=== PATIENT | female | born 1995 | race Caucasian/White ===

== ENCOUNTER 2022-06-02 14:26 | Emergency (ER) | payer SELFPAY ==
[2022-06-02 15:20] LABS: Bilirubin Neg (Negative); Blood, Urine 10 (Negative); Clarity Clear (Clear); Glucose, Urine (Dipstick) Normal (Negative); Ketone, Urine Negative (Negative); Leukocyte 25 (Negative); Nitrite Negative (Negative); Protein, Urine (Dipstick) Negative (Neg-Trace); Urobilinogen Normal mg/dL (Less than 2); pH, Urine 6.5 (5.0-9.0)
[2022-06-02 15:22] LABS: Pregnancy Test - Urine (BHCG) Negative (Negative); Pregu Control Background? CLEAR/WHITE (CLR/WHITE); Pregu Control Bar Appear? YES (CONTROL BAR)
[2022-06-02 15:37] LABS: Bacteria/HPF Rare-Few HPF (None Seen); Squamous Epithelial 0-3 HPF (0-3); WBC/HPF 0-3 HPF (0-3)
[2022-06-02] MEDS ORDERED: Ondansetron PF 4 MG/2 ML Vial ONE (15:37)
[2022-06-02] MEDS ORDERED: Lidocaine Viscous Sol 2% 15 ml UD Cup ONE (15:38)
[2022-06-02 15:44] LABS: #Eosinphils 0.2 10x3/uL (0.0-0.5); #Monocytes 0.5 10x3/uL (0.0-1.1); #Neutrophils 5.5 10x3/uL (1.5-8.4); %Basophils 0.5 % (0.0-2.0); %Eosinophils 1.8 % (0.0-6.0); %Lymphocytes 24.6 % (18.0-47.0); %Monocytes 6.3 % (0.0-10.0); %Neutrophils 66.3 % (40.0-75.0); Hemoglobin 15.1 g/dL (12.0-15.5); Mean Corpuscular HGB CONC 33.4 g/dL (32.0-36.0); Mean Corpuscular Volume 86.8 fl (81.6-98.3); Mean Platelet Volume 10.2 fl (7.4-10.4); Platelet Count 220 10x3/uL (150-450); RBC Distribution Width 13.2 % (11.5-14.5); Red Blood Cell (RBC) Count 5.21 10x6/uL (3.90-5.03); White Blood Cell (WBC) Count 8.3 10x3/uL (3.5-10.5)
[2022-06-02 16:01] LABS: ALT (SGPT) 25 U/L (8-55); AST (SGOT) 22 U/L (5-34); Albumin 4.9 g/dL (3.5-5.0); Alkaline Phosphatase 84 U/L (40-110); Anion Gap 15 mmol/L (10-20); BUN (Urea Nitrogen) 12 mg/dL (7.0-18.7); Bilirubin, Total 0.8 mg/dL (0.2-1.2); Calc. Creatinine Clearance 0 mL/min (70-130); Calcium 10.4 mg/dL (7.8-10.44); Carbon Dioxide 24 mmol/L (22-29); Chloride 105 mmol/L (98-107); Estimated GFR 104; Globulin 3.3 g/dL (2.4-3.5); Glucose 74 mg/dL (70-105); Lipase 41 U/L (8-78); Magnesium 1.9 mg/dL (1.6-2.6); Potassium 4.2 mmol/L (3.5-5.1); Protein, Total 8.2 g/dL (6.0-8.3); Sodium 140 mmol/L (136-145)
== END 2022-06-02 16:58 | disposition home or self-care (01) ==
LOC: CSHERS 14:26
DX: K21.9 Gastro-esophageal reflux disease without esophagitis (principal); R11.2 Nausea with vomiting, unspecified; F17.210 Nicotine dependence, cigarettes, uncomplicated
CPT/HCPCS: 71045; 80053; 81003; 81015; 81025; 83690; 83735; 84484; 85025; 87086; 93005; 96361; 96374; J2405

== ENCOUNTER 2022-10-09 16:54 | Emergency (ER) | payer MEDICAID, SELFPAY ==
[2022-10-09] MEDS ORDERED: Acetaminophen 500 MG TAB ONE (18:57)
[2022-10-09] MEDS ORDERED: diphenhydrAMINE 50 MG/ML VIAL ONE (18:57)
[2022-10-09] MEDS ORDERED: Metoclopramide HCl 10 MG/2 ML VIAL ONE (18:57)
== END 2022-10-09 20:03 | disposition home or self-care (01) ==
LOC: CSHERS 16:54
DX: O99.351 Diseases of the nervous system complicating pregnancy, first trimester (principal); G43.909 Migraine, unspecified, not intractable, without status migrainosus; O99.331 Smoking (tobacco) complicating pregnancy, first trimester; F17.210 Nicotine dependence, cigarettes, uncomplicated; Z3A.01 Less than 8 weeks gestation of pregnancy
CPT/HCPCS: 36416; 96365; 96375; J1200; J2765

== ENCOUNTER 2023-04-25 23:28 | Day surgery (SDC) | payer OTHER ==
[2023-04-25 23:51] VITALS: BMI 36.3
[2023-04-26] MEDS ORDERED: hydrALAZINE 20 MG/ML VIAL SLOW IVP PRN (00:31)
[2023-04-26 03:38] LABS: Bilirubin Neg (Negative); Blood, Urine Negative (Negative); Glucose, Urine (Dipstick) Normal (Negative); Ketone, Urine Negative (Negative); Leukocyte 25 (Negative); Nitrite Negative (Negative); Protein, Urine (Dipstick) 30 mg/dl (Neg-Trace); Urobilinogen Normal mg/dL (Less than 2)
[2023-04-26 03:41] LABS: Clarity Hazy (Clear)
[2023-04-26 03:50] LABS: Bacteria/HPF 1+ HPF (None Seen); CAUTI Indications for Culture Pregnancy; RBC/HPF 0-3 HPF (0-3); Squamous Epithelial 0-3 HPF (0-3); WBC/HPF 0-3 HPF (0-3)
[2023-04-26 03:52] LABS: Urine Culture Reflex Yes Yes
== END 2023-04-26 03:41 | disposition home or self-care (01) ==
LOC: CSHLD/OP 23:28
PROVIDERS: ATTEND Family Medicine
DX: O47.03 False labor before 37 completed weeks of gestation, third trimester (principal); O99.333 Smoking (tobacco) complicating pregnancy, third trimester; F17.210 Nicotine dependence, cigarettes, uncomplicated; Z3A.35 35 weeks gestation of pregnancy; Z79.899 Other long term (current) drug therapy
CPT/HCPCS: 76815; 81001; 87086; 99283

== ENCOUNTER 2023-05-07 23:18 | Day surgery (SDC) | payer OTHER ==
[2023-05-07 23:30] VITALS: BMI 37.4
[2023-05-08] MEDS ORDERED: hydrALAZINE 20 MG/ML VIAL SLOW IVP PRN
== END 2023-05-08 01:45 | disposition left against medical advice (07) ==
LOC: CSHLD/OP 23:18
PROVIDERS: ATTEND Student in an Organized Health Care Education/Training Program
DX: O36.8130 Decreased fetal movements, third trimester, not applicable or unspecified (principal); O99.513 Diseases of the respiratory system complicating pregnancy, third trimester; J45.909 Unspecified asthma, uncomplicated; O99.613 Diseases of the digestive system complicating pregnancy, third trimester; K21.9 Gastro-esophageal reflux disease without esophagitis; O41.03X0 Oligohydramnios, third trimester, not applicable or unspecified; O98.813 Other maternal infectious and parasitic diseases complicating pregnancy, third trimester; B95.1 Streptococcus, group B, as the cause of diseases classified elsewhere; O99.343 Other mental disorders complicating pregnancy, third trimester; F41.9 Anxiety disorder, unspecified; O99.323 Drug use complicating pregnancy, third trimester; F12.90 Cannabis use, unspecified, uncomplicated; O99.333 Smoking (tobacco) complicating pregnancy, third trimester; F17.200 Nicotine dependence, unspecified, uncomplicated; O99.213 Obesity complicating pregnancy, third trimester; Z79.899 Other long term (current) drug therapy; Z91.040 Latex allergy status; Z91.018 Allergy to other foods; Z3A.37 37 weeks gestation of pregnancy
CPT/HCPCS: 76819; 99282

== ENCOUNTER 2023-05-08 12:54 | Inpatient (IN) | payer OTHER ==
[2023-05-08 13:48] VITALS: BMI 37.4
[2023-05-08] MEDS ORDERED: hydrALAZINE 20 MG/ML VIAL SLOW IVP PRN (14:12)
== END 2023-05-08 15:46 | disposition home health service (06) | DRG 832 ==
LOC: CSHLD 12:54
PROVIDERS: ADMIT Obstetrics & Gynecology; ATTEND Obstetrics & Gynecology
PROC: 4A1HXCZ Monitoring of Products of Conception, Cardiac Rate, External Approach (ICD-10-PCS; principal; 2023-05-08)
DX: O41.03X0 Oligohydramnios, third trimester, not applicable or unspecified (principal); O98.813 Other maternal infectious and parasitic diseases complicating pregnancy, third trimester; O99.333 Smoking (tobacco) complicating pregnancy, third trimester; F17.210 Nicotine dependence, cigarettes, uncomplicated; Z71.6 Tobacco abuse counseling; Z3A.39 39 weeks gestation of pregnancy; O36.8130 Decreased fetal movements, third trimester, not applicable or unspecified; O99.513 Diseases of the respiratory system complicating pregnancy, third trimester; J45.909 Unspecified asthma, uncomplicated; O99.613 Diseases of the digestive system complicating pregnancy, third trimester; K21.9 Gastro-esophageal reflux disease without esophagitis; B95.1 Streptococcus, group B, as the cause of diseases classified elsewhere; O99.343 Other mental disorders complicating pregnancy, third trimester; F41.9 Anxiety disorder, unspecified; F17.200 Nicotine dependence, unspecified, uncomplicated; O99.213 Obesity complicating pregnancy, third trimester; Z79.899 Other long term (current) drug therapy; Z91.040 Latex allergy status; Z91.018 Allergy to other foods
CPT/HCPCS: 76819; 99282

== ENCOUNTER 2023-05-15 16:35 | Inpatient (IN) | payer OTHER ==
[2023-05-15 17:39] VITALS: BMI 38.2
[2023-05-15] MEDS ORDERED: hydrALAZINE 20 MG/ML VIAL SLOW IVP PRN (17:48)
[2023-05-15] MEDS ORDERED: Lidocaine 1% (PF) 30 ML VIAL SC PRN (17:48)
[2023-05-15] MEDS ORDERED: Methylergonovine 0.2 MG/ML VIAL IM PRN (17:48)
[2023-05-15] MEDS ORDERED: Ondansetron PF 4 MG/2 ML Vial IVP PRN (17:48)
[2023-05-15] MEDS ORDERED: Promethazine HCl 25 MG/ML VIAL IM PRN (17:48)
[2023-05-15] MEDS ORDERED: Ibuprofen 800 MG TAB PO PRN (17:48)
[2023-05-15] MEDS ORDERED: Misoprostol 200 MCG TAB PR PRN (17:48)
[2023-05-15] MEDS ORDERED: Acetaminophen 500 MG TAB PO PRN (17:48)
[2023-05-15 18:23] LABS: Hematocrit 37.2 % (34.9-44.5); Hemoglobin 13.2 g/dL (12.0-15.5); Mean Corpuscular HGB CONC 35.5 g/dL (32.0-36.0); Mean Corpuscular Hemoglobin 31.1 pg (27.0-33.0); Mean Corpuscular Volume 87.5 fl (81.6-98.3); Mean Platelet Volume 12.4 fl (7.4-10.4); Platelet Count 201 10x3/uL (150-450); RBC Distribution Width 14.1 % (11.5-14.5); Red Blood Cell (RBC) Count 4.25 10x6/uL (3.90-5.03); White Blood Cell (WBC) Count 13.4 10x3/uL (3.5-10.5)
[2023-05-15 18:55] LABS: HBSAg Index 0.23 S/CO (0-0.99); Hep B Surf Ag - L&D Non-Reactive S/CO (NonReactive); Syphilis Antibody Nonreactive (Nonreactive); Syphilis Antibody Index 0.03 S/CO (<1.00 Non-Reactive)
[2023-05-15] MEDS ORDERED: hydrOXYzine 10 MG TAB PO PRN (19:39)
[2023-05-15] MEDS ORDERED: Tranexamic Acid 1,000 MG/10 ML VIAL IVP PRN (19:40)
[2023-05-15] MEDS ORDERED: Oxytocin 30 units/NS 500 ML 500 ML IV SCH (19:45)
[2023-05-15] MEDS: Penicillin G Potassium 5 MILL.UNITS in Sodium Chloride 0.9% 100 ML IVPB SCH (20:19)
[2023-05-15] MEDS: Misoprostol 100 MCG TAB VAG SCH (20:19)
[2023-05-15] MEDS: hydrOXYzine 25 MG TAB PO SCH (21:00)
[2023-05-16] MEDS: Calcium Carbonate 500 MG ChewTAB PO SCH (02:56)
[2023-05-16] MEDS: Penicillin G 2.5 MILL.units 2.5 MILL.UNITS in Premix 1 BAG IVPB SCH (02:56)
[2023-05-16] MEDS ORDERED: Acetaminophen 325 MG TAB PO PRN (04:00)
[2023-05-16] MEDS ORDERED: Communication Order-Pharmacy FS SCH ×2 (04:00→08:00)
[2023-05-16] MEDS ORDERED: Ondansetron PF 4 MG/2 ML Vial IVP PRN ×3 (04:00→07:51)
[2023-05-16] MEDS ORDERED: Naloxone HCl 0.4 mg/ml Vial IVP PRN ×4 (04:00→07:51)
[2023-05-16] MEDS ORDERED: Promethazine HCl 25 MG/ML VIAL IM PRN ×2 (04:00→07:51)
[2023-05-16] MEDS ORDERED: ePHEDrine Sulfate 50 MG/10 ML VIAL SLOW IVP PRN (04:00)
[2023-05-16] MEDS ORDERED: diphenhydrAMINE 50 MG/ML VIAL IVP PRN (04:00)
[2023-05-16] MEDS ORDERED: fentaNYL 2 mcg/Ropivacaine 0.2% Epidural 100 ML CADD EPIDURAL SCH (04:00)
[2023-05-16] MEDS ORDERED: Lactated Ringer's 500 ML IV PRN (04:00)
[2023-05-16] MEDS ORDERED: Moisturizing Cream (Eucerin) 113 GM JAR TOP PRN ×2 (04:00→07:51)
[2023-05-16] MEDS ORDERED: Naloxone HCl 0.4 mg/ml Vial IV PRN (07:51)
[2023-05-16] MEDS ORDERED: Promethazine HCl 25 MG SUPP PR PRN (07:51)
[2023-05-16] MEDS ORDERED: Meperidine HCl/PF 25 MG (1 mL) VIAL SLOW IVP PRN (07:51)
[2023-05-16] MEDS ORDERED: fentaNYL 50 mcg/mL 1 mL Vial SLOW IVP PRN (07:51)
[2023-05-16 07:52] LABS: Analyzer IN Cardio CS NICU; Critical Notified Whom: LICAN; RapidComm Collect By CBN; pH (Cord, venous) 7.364 (7.250-7.350)
[2023-05-16] MEDS ORDERED: Ketorolac Tromethamine 30 MG (1 mL) VIAL IVP SCH (08:00)
[2023-05-16] MEDS ORDERED: Lanolin Ointment 7 GM TUBE TOP PRN (08:06)
[2023-05-16] MEDS ORDERED: hydrALAZINE 20 MG/ML VIAL SLOW IVP PRN (08:06)
[2023-05-16] MEDS: HYDROmorphone 0.5 MG/0.5 ML SYRINGE SLOW IVP PRN (10:42)
[2023-05-16] MEDS: Lactated Ringer's 1,000 ML IV SCH (12:28)
[2023-05-16] MEDS: diphenhydrAMINE 50 MG/ML VIAL IVP PRN (12:31)
[2023-05-16] MEDS: CEFAZOLIN 2 GM VIAL ONE (14:20)
[2023-05-16] MEDS: Azithromycin 500 MG VIAL ONE (14:20)
[2023-05-16] MEDS: fentaNYL/Ropivacaine Epidural 100 ML ONE (14:20)
[2023-05-16] MEDS: ePHEDrine Sulfate 50 MG/10 ML VIAL ONE (14:21)
[2023-05-16] MEDS: PHENYLEPHRINE-NS 100 MCG/ML 10 ML SYRINGE ONE (14:21)
[2023-05-16] MEDS: Ondansetron PF 4 MG/2 ML Vial ONE (14:21)
[2023-05-16] MEDS: Dexamethasone 4 mg/ml Vial ONE (14:21)
[2023-05-16] MEDS: Morphine PF 10 MG/10 ML VIAL ONE (14:21)
[2023-05-16] MEDS: Glycopyrrolate 0.2 MG/ML 5 ML SYRINGE ONE (14:21)
[2023-05-16] MEDS: Chloroprocaine 3% PF 20 ML VIAL ONE (14:21)
[2023-05-16] MEDS: Oxytocin 10 UNITS/ML VIAL ONE (14:21)
[2023-05-16] MEDS: Boostrix 0.5 ML (Tdap) VIAL (>/=7 yrs of age) IM ONE (14:22)
[2023-05-16] MEDS: Ferrous Sulfate 325 MG TAB PO SCH (14:22)
[2023-05-16] MEDS: Prenatal Vitamin 1 TAB PO SCH (14:22)
[2023-05-16] MEDS: Ketorolac Tromethamine 30 MG (1 mL) VIAL ONE (14:22)
[2023-05-16] MEDS ORDERED: Terbutaline Sulfate 1 MG/ML VIAL ONE (16:00)
[2023-05-16] MEDS ORDERED: Bupivacaine 0.25% HCL 30 ML VIAL ONE (16:00)
[2023-05-16] MEDS: Ketorolac Tromethamine 30 MG (1 mL) VIAL IVP PRN (16:09)
[2023-05-16] MEDS: hydrOXYzine 25 MG TAB PO PRN (16:29)
[2023-05-16] MEDS: Calcium Carbonate 500 MG ChewTAB PO PRN (20:13)
[2023-05-16] MEDS: Docusate 100 MG CAP PO PRN (20:13)
[2023-05-16] MEDS: HYDROcodone/Acetaminophen 5/325 mg Tablet PO PRN (20:13)
[2023-05-17 04:19] LABS: Hematocrit 29.9 % (34.9-44.5); Hemoglobin 9.9 g/dL (12.0-15.5); Mean Corpuscular HGB CONC 33.1 g/dL (32.0-36.0); Mean Corpuscular Hemoglobin 29.8 pg (27.0-33.0); Mean Corpuscular Volume 90.1 fl (81.6-98.3); Mean Platelet Volume 11.9 fl (7.4-10.4); Platelet Count 152 10x3/uL (150-450); RBC Distribution Width 14.2 % (11.5-14.5); Red Blood Cell (RBC) Count 3.32 10x6/uL (3.90-5.03); White Blood Cell (WBC) Count 14.6 10x3/uL (3.5-10.5)
[2023-05-17] MEDS ORDERED: hydrOXYzine 25 MG TAB PO PRN (13:27)
[2023-05-17] MEDS: Ibuprofen 800 MG TAB PO SCH (14:20)
[2023-05-17] MEDS: Sertraline 100 MG TAB PO SCH (14:21)
[2023-05-18] MEDS: Sertraline 100 MG TAB PO SCH (08:27)
[2023-05-19 08:28] VITALS: BP 129/71; TEMP 98.1
== END 2023-05-19 12:05 | disposition home or self-care (01) | DRG 787 ==
LOC: CSHLD 16:35 → CSHPED 05-16 11:10
PROVIDERS: ADMIT Family Medicine; ATTEND Family Medicine
PROC: 10D00Z1 Extraction of Products of Conception, Low, Open Approach (ICD-10-PCS; principal; 2023-05-16)
PROC: 10H07YZ Insertion of Other Device into Products of Conception, Via Natural or Artificial Opening (ICD-10-PCS; 2023-05-16)
PROC: 3E0234Z Introduction of Serum, Toxoid and Vaccine into Muscle, Percutaneous Approach (ICD-10-PCS; 2023-05-16)
DX: O41.03X0 Oligohydramnios, third trimester, not applicable or unspecified (principal); D62 Acute posthemorrhagic anemia; O36.0930 Maternal care for other rhesus isoimmunization, third trimester, not applicable or unspecified; Z3A.38 38 weeks gestation of pregnancy; Z37.0 Single live birth; O76 Abnormality in fetal heart rate and rhythm complicating labor and delivery; O99.52 Diseases of the respiratory system complicating childbirth; J45.909 Unspecified asthma, uncomplicated; O99.824 Streptococcus B carrier state complicating childbirth; O99.344 Other mental disorders complicating childbirth; F41.9 Anxiety disorder, unspecified; O13.4 Gestational [pregnancy-induced] hypertension without significant proteinuria, complicating childbirth; O90.81 Anemia of the puerperium
CPT/HCPCS: 36415; 51702; 82805; 85027; 85461; 86780; 86850; 86900; 86901; 87340; 90384; 96372; J0665; J1100; J1170; J1200; J1885; J2274; J2401; J2405; J2540; J2590; J3105; J3490